=== PATIENT | male | born 1990 | race Caucasian/White ===

== ENCOUNTER 2020-09-19 22:56 | Emergency (ER) | payer OTHER ==
[~2020-09-19 22:56] MED LIST: CERTAGEN1 EACH PO; PRINIVIL10 MG PO; PROTONIX20 MG PO; ZYRTEC10 M3 PO
[2020-09-19 23:32] LABS: BASOPHIL 0.8 % (0-2); EOSINOPHIL 0.5 % (0-5); HCT 43.2 % (42.0-52.0); HGB 14.9 g/dl (13.2-18.0); LYMPHOCYTE 28.8 % (15-48); MCH 30.6 pg (25.0-31.0); MCHC 34.5 g/dL (32.0-36.0); MCV 88.7 fL (78.0-100.0); MONOCYTE 10.9 % (0-12); NRBC 0; PLT 210 K/uL (150-400); RBC 4.87 M/uL (4.70-6.00); RDW 13.5 % (11.5-14.0); WBC 11.6 K/uL (4.0-10.5)
[2020-09-19 23:37] LABS: BUN/CREAT RATIO (CALC) 16.2 RATIO; CREATININE 1.3 mg/dL (0.67-1.17); POTASSIUM 3.4 mmol/L (3.5-5.1)
[2020-09-19 23:48] LABS: CKMB 1.5 ng/mL (0.0-3.6)
== END 2020-09-20 00:28 | disposition home or self-care (01) ==
LOC: FER 22:56
PROVIDERS: Emergency Medicine
DX: R07.89 Other chest pain (principal); U07.1 COVID-19; J12.82 Pneumonia due to coronavirus disease 2019; I10 Essential (primary) hypertension; E11.9 Type 2 diabetes mellitus without complications; Z79.899 Other long term (current) drug therapy
CPT/HCPCS: 36415; 71046; 80048; 82553; 84484; 85025; 93005